=== PATIENT | male | born 1975 | race African-American/Black ===

== ENCOUNTER 2017-05-27 11:19 | Emergency (ER) | payer OTHER ==
[~2017-05-27] VITALS: Ht 188 cm; Wt 90.0 kg
[2017-05-27 11:29] VITALS: Ht 188 cm; Wt 90.0 kg
[2017-05-27] MEDS ORDERED: VALACYCLOVIR 500 MG TAB PO ONE (12:00)
[2017-05-27] MEDS ORDERED: predniSONE 20 MG TAB PO ONE (12:00)
--- NOTE | 2017-05-27 12:19 | ERD ---
ER Documentation Chief Complaint Date/Time DATE: 05/27/17 TIME: 12:15 Chief Complaint Pt BIB RA 100 for c/o R lip numbness after using Meth this morning. HPI This is a 41-year-old male who is a poor historian but presents to the emergency room with right facial weakness. The patient [facility]. He states that he is having difficulty moving the right side of his face and forehead. He is having taste sensation loss to the anterior two thirds of his tongue. The patient denies any falls or head injury , no chest pain or shortness of breath, no motor weakness or slurred speech. The patient states that he was using methamphetamine this morning. He describes no other past medical history and no history of stroke. ROS All systems reviewed and are negative except as per history of present illness. Medications Home Meds Active Scripts Dextran 70/Hypromellose (Artificial Tears) 1 Each Droperette, 1 EACH OP PRN Y for eye dryness, #1 BOTTLE Prov:CARRIE WRAY MD 05/27/17 Valacyclovir HCl (Valtrex) 1,000 Mg Tablet, 1000 MG PO TID for 7 Days, TAB Prov:CARRIE WRAY MD 05/27/17 Prednisone* (Prednisone*) 20 Mg Tab, 60 MG PO DAILY for 6 Days, TAB Prov:CARRIE WRAY MD 05/27/17 Allergies Allergies: Coded Allergies: sulfamethoxazole (Verified Allergy, Intermediate, 05/27/17) trimethoprim (Verified Allergy, Intermediate, 05/27/17) PMhx/Soc History of Surgery: No Anesthesia Reaction: No Hx Neurological Disorder: No Hx Respiratory Disorders: No Hx Cardiac Disorders: No Hx Psychiatric Problems: No Hx Miscellaneous Medical Probl: No Hx Alcohol Use: Yes Hx Substance Use: Yes (METH) Hx Tobacco Use: Yes Smoking Status: Current every day smoker FmHx Family History: No diabetes Physical Exam Vitals Vital Signs Date Time Temp Pulse Resp B/P Pulse Ox O2 Delivery O2 Flow Rate FiO2 05/27/17 13:15 98.4 76 18 125/92 100 Room Air 05/27/17 11:29 98.6 73 20 121/86 100 Physical Exam General: Well developed, well nourished, no acute distress, obvious right 7th nerve palsy Head: Normocephalic, atraumatic Eyes: Pupils equally reactive, EOM intact, inability to fully close the right eye lids ENT: Moist mucous membranes Neck: Supple, no lymphadenopathy Respiratory: Lungs clear bilaterally, no distress Cardiovascular: RRR, no murmurs, rubs, or gallops Abdominal: Soft, non-tender, non-distended, no peritoneal signs : Deferred MSK: No edema, no unilateral swelling, 5/5 strength Neurologic: Alert and oriented, moving all extremities, normal speech, no focal weakness, no cerebellar signs, clear peripheral 7th nerve palsy with inability to fully move the facial muscles of the right side of the face, inclusion of the forehead, loss of taste sensation to the anterior two thirds of the tongue, inability to fully close the right eyelids. No pronator drift noted. Normal rapid alternating movements. Steady gait. Skin: No rash Psych: Normal mood Results 24 hrs Current Medications Medications (Trade) Dose Ordered Sig/Valentino Route PRN Reason Start Time Stop Time Status Last Admin Dose Admin Prednisone (Prednisone) 60 mg ONCE ONCE PO 05/27/17 12:00 05/27/17 12:03 DC 05/27/17 11:57 Valacyclovir HCl (Valtrex) 1,000 mg ONCE ONCE PO 05/27/17 12:00 05/27/17 12:03 DC 05/27/17 12:00 Procedures/MDM EKG, MONITORS, & DIAGNOSTIC IMAGING: CT brain: No acute intracranial process per radiology read MEDICAL DECISION MAKING: The patient presents with what appears to be a very clear 7th nerve palsy. He classically describes symptoms of facial paralysis to the right side facial muscles and loss of taste sensation to the anterior two thirds of his tongue. Additionally, the patient has no other neurologic symptoms. He has clear speech is moving all 4 extremities has no pronator drift, no cerebellar signs. His symptoms are not consistent with dissection or stroke. However, the patient does use methamphetamine, intracranial hemorrhage is a potential risk and the patient would benefit from CT of the brain. Otherwise I believe the patient would benefit from initiation of glucocorticoid and antiviral therapy. Antivirals indicated given high-grade, house Brackmann score. The patient was given first dose of prednisone and antivirals here in the emergency room. Outpatient follow-up with primary care physician was strongly recommended and the patient agrees. The patient was also informed that if symptoms persist past 3 weeks he should have MRI imaging. He verbalizes understanding. Again given the clear peripheral nature of the symptoms I do not believe this is consistent with stroke and do not feel the patient warrants stroke workup or inpatient hospitalization. ER COURSE: CT brain negative. Patient given medications. Discharge instruction and follow -up discussed and understood. No evidence of acute sympathomimetic toxidrome. I kept the patient and/or family informed of laboratory and diagnostic imaging results throughout the emergency room course. DISPOSITION PLAN: We discussed follow up with the patient's primary care doctor within 24 to 48 hours as needed. We also discussed return to the emergency room for worsening symptoms or worsening condition. Outpatient referral: Primary care neurology Discharge Medications: Prednisone, valacyclovir, saline eyedrops Departure Diagnosis: Primary Impression: Blanc's palsy Additional Impression: Methamphetamine abuse Condition: Stable CARRIE WRAY MD May 27, 2017 12:19
--- NOTE | 2017-05-27 13:14 | RADRPT ---
PROCEDURE: CT Brain without. CLINICAL INDICATION: Right facial palsy. TECHNIQUE: A CT of the brain was performed on a multi-slice CT scanner utilizing axial sections fr om the skull base through the vertex without contrast. Coronal and sagittal reconstructed images w ere provided. One or more of the following does reduction techniques were used: Automated exposure control; adjustment of the mA and/or kV according to patient size; use of the aorta of reconstructi on technique. Images were reviewed on a high-resolution PACS workstation. The exam CTDI = 42.02 mGy . The exam DLP = 720.23 mGy-cm. COMPARISON: None available FINDINGS: The ventricles and sulci are symmetric and normal in size and morphology. There is no evidence of i ntracranial hemorrhage, mass effect, edema or midline shift. No abnormal intra-axial or extra-axial fluid collections are seen. The box/white matter differentiation is well preserved. The osseous structures and visualized sinuses are unremarkable. The mastoid air cells are clear. Th e surrounding soft tissue scalp and bony calvarium are intact and normal. IMPRESSION: 1. Unremarkable CT brain. RPTAT: KK .Jian Moreno MD, MD Date Time Electronically viewed and signed by .Jian Moreno MD, MD on 05/27/2017 13:14 .B/
[2017-05-27 13:15] VITALS: BP 125/92; PULSE 76; RESP 18; TEMP 98.4
[2017-05-27] MEDS ORDERED: DEXT1DRO6 OP (13:17)
[2017-05-27] MEDS ORDERED: VALA10004 PO (13:17)
[2017-05-27] MEDS ORDERED: PRED20TA PO (13:17)
== END 2017-05-27 13:30 | disposition home or self-care (01) ==
LOC: E/R 11:19
DX: G51.0 Bell's palsy (principal); R40.2252 Coma scale, best verbal response, oriented, at arrival to emergency department; F17.210 Nicotine dependence, cigarettes, uncomplicated; R40.2142 Coma scale, eyes open, spontaneous, at arrival to emergency department; R40.2362 Coma scale, best motor response, obeys commands, at arrival to emergency department
CPT/HCPCS: 70450; J7512; Z7502; Z7610